=== PATIENT | female | born 1985 | race Caucasian/White ===

== ENCOUNTER 2018-09-24 05:35 | Inpatient (IN) ==
[2018-09-24] MEDS ORDERED: CITRIC ACID/SODIUM CITRATE 30 ML UDCUP PO PRN (05:46)
[2018-09-24] MEDS ORDERED: ceFAZolin 3,000 MG in SYRINGE 1 EACH IV ONE (05:46)
[2018-09-24] MEDS ORDERED: FAMOTIDINE 20 MG/2 ML VIAL IV PRN (05:46)
[2018-09-24 06:16] LABS: Basophils % 0.3 % (0.0-0.8); Eosinophils # 0.1 10*3/uL (0.0-0.87); Eosinophils % 1.1 % (0.00-10.9); Immature Granulocytes % 1.6 %; Immature Granulocytes Absolute 0.19 #; Lymphocytes # 2.2 10*3/uL (1.4-4.0); Lymphocytes % 18.2 % (21.3-54.2); Mean Corpuscular HGB Conc 30.6 GM/DL (32-36); Monocytes % 6.8 % (1.7-12.7); Platelet Count 110 T/CUMM (130-400); Red Blood Count 3.83 MC/CUMM (3.8-5.5); Red Cell Distribution Width 13.2 % (9.3-17.3); White Blood Count 12.2 T/CUMM (4-12)
[2018-09-24] MEDS: LACTATED RINGERS 1,000 ML IV SCH ×3 (06:25→21:00)
[2018-09-24 06:31] LABS: Alanine Aminotransferase 22 U/L (13-56); Albumin 2.6 G/DL (3.4-5.0); Alkaline Phosphatase 117 U/L (45-117); Aspartate Amino Transferase 24 U/L (0-37); Bilirubin,Total < 0.39 MG/DL (0.2-1.0); Blood Urea Nitrogen 12 MG/DL (7-18); Calcium 9.3 MG/DL (8.5-10.1); Glucose 75 MG/DL (74-106); Osmolality,Calculated 273.7 MOS/KG (273-304); Total Protein 6.2 G/DL (6.4-8.3)
[2018-09-24] MEDS ORDERED: PHENYLEPHRINE 1 MG/10 ML SYRINGE IV ONE (06:33)
[2018-09-24] MEDS ORDERED: fentaNYL 100 MCG/2 ML VIAL ONE (06:33)
[2018-09-24] MEDS ORDERED: MORPHINE 10 MG/10 ML VIAL ONE (06:34)
[2018-09-24] MEDS ORDERED: KETOROLAC 60 MG/2 ML VIAL IM ONE (06:34)
[2018-09-24] MEDS ORDERED: BUPIVACAINE SPINAL 0.75% 2 ML AMP SPINAL ONE (06:34)
[2018-09-24] MEDS ORDERED: ONDANSETRON 4 MG/2 ML VIAL ONE (06:34)
[2018-09-24] MEDS ORDERED: BUPIVACAINE 0.5% 50 ML VIAL ONE (06:35)
[2018-09-24] MEDS ORDERED: EPINEPHrine 1 MG/ML VIAL ONE (06:35)
[2018-09-24] MEDS ORDERED: DEXAMETHASONE 4 MG/1 ML VIAL ONE (06:35)
[2018-09-24 06:37] LABS: Hypochromasia 1+; Microcytosis Slight; Platelet Estimate Decreased
[2018-09-24] MEDS: OXYTOCIN/LR 20 UNIT/1,000 ML BAG IV PRN ×2 (08:10→08:40)
[2018-09-24] MEDS ORDERED: DIPH/TET/ACEL PERT BOOSTER VACCINE 0.5 ML VIAL IM ONE (08:59)
[2018-09-24] MEDS ORDERED: MEASLES/MUMPS/RUBELLA VACCINE 0.5 ML VIAL SUBCUT ONE (08:59)
[2018-09-24] MEDS ORDERED: LANOLIN 50% CREAM 0.3 OZ TUBE TOP PRN (08:59)
[2018-09-24] MEDS ORDERED: WITCH HAZEL PADS 100/JAR TOP PRN (08:59)
[2018-09-24] MEDS ORDERED: ONDANSETRON 4 MG/2 ML VIAL IV PRN (08:59)
[2018-09-24] MEDS ORDERED: BISACODYL 10 MG SUPP RECTAL PRN (08:59)
[2018-09-24] MEDS ORDERED: ACETAMINOPHEN 325 MG TABLET PO PRN (08:59)
[2018-09-24] MEDS ORDERED: OXYTOCIN/LR 20 UNIT/1,000 ML BAG IV ONE (08:59)
[2018-09-24] MEDS ORDERED: BENZOCAINE 20%/MENTHOL 0.5% SPRAY 56 GM CAN TOP PRN (08:59)
[2018-09-24] MEDS ORDERED: RHO(D) IMMUNE GLOBULIN 300 MCG SYRINGE IM ONE (08:59)
[2018-09-24] MEDS ORDERED: oxyCODONE/ACETAMINOPHEN 5-325 MG TABLET PO PRN (08:59)
[2018-09-24] MEDS ORDERED: HYDROCORTISONE 2.5% RECTAL CREAM 30 GM TUBE TOP PRN (08:59)
[2018-09-24 09:07] LABS: Apearance,Urine CLEAR (Clear); Bilirubin,Urine Negative (Negative); Blood, Urine Negative (Negative); Glucose,Urine (UA) Negative (Negative); Ketones,Urine Negative (Negative); Mucus,Urine Occasional /LPF (Occasional); Nitrite,Urine Negative (Negative); Protein,Urine Negative; RBC,Urine <1 /HPF (0-4); Urine Color Straw (Yellow); Urine Specific Gravity 1.008 (1.001-1.035); Urine Urobilinogen < 2.0 EU/DL (0.2-1.0)
[2018-09-24] MEDS ORDERED: hydrOXYzine HCL 25 MG/1 ML VIAL IM PRN (09:29)
[2018-09-24] MEDS ORDERED: diphenhydrAMINE 50 MG/1 ML VIAL IV PRN ×3 (09:29→23:16)
[2018-09-24] MEDS ORDERED: HYDROmorphone 2 MG/1 ML VIAL IV PRN (09:29)
[2018-09-24] MEDS ORDERED: PROPOFOL 200 MG/20 ML VIAL IV ONE (09:31)
[2018-09-24] MEDS: KETOROLAC 30 MG/1 ML VIAL IV SCH ×2 (14:55→21:02)
[2018-09-24] MEDS: ceFAZolin 1,000 MG in SYRINGE 1 EACH IV SCH ×2 (15:51→23:21)
[2018-09-24] MEDS: DOCUSATE SODIUM 100 MG CAPSULE PO SCH (21:03)
[2018-09-25 04:14] LABS: Basophils % 0.1 % (0.0-0.8); Eosinophils % 0.2 % (0.00-10.9); Hematocrit 28.6 VOL% (35.7-47.0); Hemoglobin 9.1 GM/DL (12.0-16.0); Immature Granulocytes % 0.9 %; Immature Granulocytes Absolute 0.12 #; Lymphocytes # 1.9 10*3/uL (1.4-4.0); Mean Corpuscular HGB Conc 31.8 GM/DL (32-36); Mean Corpuscular Volume 92.6 FL (87-102); Monocytes % 7.5 % (1.7-12.7); Neutrophils % 77.3 % (38.7-73.9); Platelet Count 108 T/CUMM (130-400); Red Blood Count 3.09 MC/CUMM (3.8-5.5); Red Cell Distribution Width 13.5 % (9.3-17.3); White Blood Count 13.3 T/CUMM (4-12)
[2018-09-25 04:37] LABS: Hypochromasia 1+
[2018-09-25] MEDS: KETOROLAC 30 MG/1 ML VIAL IV SCH (04:46)
[2018-09-25] MEDS ORDERED: KETOROLAC 30 MG/1 ML VIAL IV SCH (05:00)
[2018-09-25] MEDS: DOCUSATE SODIUM 100 MG CAPSULE PO SCH ×3 (09:41→21:13)
[2018-09-25] MEDS: FERROUS SULFATE 325 MG TABLET PO SCH (09:42)
[2018-09-25] MEDS: oxyCODONE/ACETAMINOPHEN 5-325 MG TABLET PO PRN ×2 (16:31→23:58)
[2018-09-25] MEDS: IBUPROFEN 800 MG TABLET PO PRN (17:30)
[2018-09-26] MEDS: IBUPROFEN 800 MG TABLET PO PRN ×2 (01:52→11:35)
[2018-09-26 07:28] VITALS: BP 135/80
[2018-09-26] MEDS ORDERED: LABETALOL 100 MG TABLET PO SCH (09:00)
[2018-09-26] MEDS: FERROUS SULFATE 325 MG TABLET PO SCH (09:04)
[2018-09-26] MEDS: DOCUSATE SODIUM 100 MG CAPSULE PO SCH (09:05)
== END 2018-09-26 12:00 | disposition home or self-care (01) | DRG 785 ==
LOC: N.LD 05:35 → N.OB 12:19
PROVIDERS: ADMIT Specialist; ATTEND Specialist